=== PATIENT | female | born 1985 | race Caucasian/White ===

== ENCOUNTER 2022-01-27 00:37 | Emergency (ER) | payer BC ==
[2022-01-27 00:45] VITALS: BP 124/78; PULSE 101; TEMP 98.6; BMI 21.6
[2022-01-27] MEDS ORDERED: DEXTROSE 5%-NORMAL SALINE 1,000 ML IV ONE (01:20)
[2022-01-27] MEDS ORDERED: ONDANSETRON 4 MG/2 ML VIAL IVPB ONE (01:20)
[2022-01-27] MEDS ORDERED: ONDANSETRON 4 MG/2 ML VIAL ONE (01:21)
== END 2022-01-27 01:31 | disposition home or self-care (01) ==
LOC: FER 00:37
PROC: 3E033GC Introduction of Other Therapeutic Substance into Peripheral Vein, Percutaneous Approach (ICD-10-PCS; principal; 2022-01-27)
PROC: 3E033GC Introduction of Other Therapeutic Substance into Peripheral Vein, Percutaneous Approach (ICD-10-PCS; 2022-01-27)
DX: A09 Infectious gastroenteritis and colitis, unspecified (principal)
CPT/HCPCS: 99284-25